=== PATIENT | female | born 2000 | race Caucasian/White ===

== ENCOUNTER → 2021-06-17 13:57 | Outpatient (BNVA) | payer MEDICAID, SELFPAY | PROVIDERS: Family Provider Nurse Practitioner Family; PCP Nurse Practitioner Family; Visit Provider Otolaryngology | DX: Z01.812 Encounter for preprocedural laboratory examination (principal); S00.451A Superficial foreign body of right ear, initial encounter; Z20.822 Contact with and (suspected) exposure to COVID-19; X58.XXXA Exposure to other specified factors, initial encounter | CPT/HCPCS: 87635 ==

== ENCOUNTER → 2021-06-21 16:22 | Outpatient (BNVA) | payer MEDICAID, SELFPAY | PROVIDERS: Family Provider Nurse Practitioner Family; PCP Nurse Practitioner Family; Visit Provider Nurse Practitioner Family | DX: H66.90 Otitis media, unspecified, unspecified ear (principal); R39.11 Hesitancy of micturition; K59.00 Constipation, unspecified | CPT/HCPCS: 74018 ==

== ENCOUNTER → 2021-06-22 11:01 | Outpatient (BNVA) | payer MEDICAID, SELFPAY | PROVIDERS: Family Provider Nurse Practitioner Family; PCP Nurse Practitioner Family; Visit Provider Nurse Practitioner Family | DX: R39.11 Hesitancy of micturition (principal); N39.0 Urinary tract infection, site not specified | CPT/HCPCS: 81000 ==

== ENCOUNTER 2021-09-11 00:50 | Emergency (ER) | payer MEDICAID, SELFPAY ==
--- NOTE | 2021-09-11 01:00 | W.ED.LOWEXIN ---
HPI - Extremity Injury (Lower) General: Chief Complaint: Pediatric General Medical Stated Complaint: hair wrap around toe, turning purple Time Seen by Provider: 09/11/21 00:59 History of Present Illness: 21-year-old female comes in today with complaints of a hair tourniquet to the third toe on the left foot. Patient is autistic and does not verbalize pain. Review of Systems General: Reports: 10 or more systems reviewed and unremarkable except in HPI and below Card: Denies: chest pain Resp: Denies: dyspnea Musc: Reports: extremity pain Skin/Breast: Reports: erythema PFSH ED PFSH: Surgical History Hx of eye surgery Social History Smoking and tobacco status: never smoked Second hand smoke exposure: No Smoking risk assessment/counseling performed?: No Alcohol intake: never Desire information about alcohol rehabilitation?: No Counseling given: No Desire information about substance/drug rehabilitation?: No Counseling given: No Adopted: No Caregiver/support person: Yes Lives independently: Yes Household members: family Housing: House Marital status: Single service: No Physical Exam Const: COMMON NORMALS: alert HENMT: COMMON NORMALS: normocephalic HEAD & SCALP: normocephalic Neck/C-Spine: COMMON NORMALS: full ROM Resp: COMMON NORMALS: normal respiratory effort Cardio: COMMON NORMALS: regular rate RATE: regular rate Extremity: COMMON NORMALS: full ROM LEFT LOWER EXTREMITY: Yes foot & digits (Tourniquet wound to the middle toe of the left foot. Redness and skin slou) Left foot and digits: Yes inspection, Yes palpation and Yes ROM Neuro: SENSORIUM/ORIENTATION: Yes alert MDM - Extremity Injury (Lower) Medical Decision Making Patient comes in today for concerns of a hair tourniquet to the middle toe of the left foot. On exam patient has a wound secondary to a tourniquet release from a hair tourniquet. Redness and sloughing of the toe was noted. Differential diagnosis includes cellulitis, infected wound, hair tourniquet. Will cover with Augmentin for wound infection. Recommend monitoring for worsening symptoms or new concerns. Recommend follow-up with primary care in 3 days for recheck. Mother reports understanding agreed to plan. Discharge Plan Discharge Patient Disposition: Home Clinical Impression: Wound infection Hair tourniquet of toe of left foot with infection Qualifiers: Encounter type: initial encounter Qualified Code(s): S90.445A - External constriction, left lesser toe(s), initial encounter Condition: Stable Prescriptions: New amoxicillin-pot clavulanate 250-62.5 mg/5 mL suspension for reconstitution 10 ml PO Q8H 7 Days Qty: 210 0RF No Action iqhszlnv-ejpyspbgu-EE 3.5-10,000-1 mg/mL-unit/mL-% drops,suspension 4 drp otic (ear) TID Qty: 10 2RF Rx Instructions: Apply 4 drops into left ear canal 4 times a day. cephalexin 500 mg capsule 500 mg PO TID Qty: 30 0RF risperidone 1 mg/mL solution 1 mg PO BID 0RF Rx Instructions: Take 1.75 Ml by mouth in the morning and 2.25 Ml in the evening. levetiracetam 100 mg/mL solution 500 mg PO BID 0RF Rx Instructions: Take 5 ML by mouth twice daily Discharge Orders: Discharge ED (Routine); Ordered 09/11/21 Ordered By: Missael Hodge Referrals: Archana Wolfe FNP-C [Primary Care Provider] - Discharge Diet: Usual diet Discharge Activity: Increase activity as tolerated Patient Instructions: Wound Care (General) Activity Restrictions/Additional Instructions: Keep wound clean and dry. Wash wound twice daily with some mild soap and water. Dry thoroughly and cover with a sock. Give antibiotics 10 mL 3 times a day for the next 7 days. Follow-up with primary care in 3 to 5 days for recheck. Return to ED for new concerns. Coding Level of Care Code ED [facility] [employer] Supervisor for [facility]
== END 2021-09-11 01:16 | disposition home or self-care (01) ==
PROVIDERS: Emergency Provider Nurse Practitioner Family; PCP Nurse Practitioner Family
DX: S90.445A External constriction, left lesser toe(s), initial encounter (principal); X58.XXXA Exposure to other specified factors, initial encounter; F84.0 Autistic disorder
CPT/HCPCS: 99282

== ENCOUNTER 2021-09-20 16:12 | Emergency (ER) | payer MEDICAID, SELFPAY ==
[2021-09-20 17:04] VITALS: BP 117/70; PULSE 135; RESP 18; O2SAT 97; BMI 19.3
[2021-09-20 18:00] VITALS: BP 117/70; PULSE 135; RESP 18; O2SAT 97
--- NOTE | 2021-09-20 18:02 | ED_ITS ---
HPI - General Adult General: Chief complaint: General Medical Stated complaint: general pain Time Seen by Provider: 09/20/21 17:51 History of Present Illness: Patient is a 21-year-old female comes to the ED with pain in toe of left foot. Patient is autistic and nonverbal. Patient was seen here in the ED back on August 12 because she had a hair tourniquet on her left toe. Mother is concerned that patient's left foot is still bothering her and wants it to get evaluated. Patient is still having some pain on left foot third toe where previous hair tourniquet was removed. Patient has been taking an antibiotic daily. She was given a dose of ibuprofen before coming to the ED. Associated symptoms: Deny chest pain, dyspnea, headache(s), nausea, rash, palpitations or vomiting Review of Systems Const: Denies: fever(s), chills or fatigue Eyes: Denies: change in vision or eye discomfort ENMT: Denies: throat pain, odynophagia, nasal discharge or nasal congestion Card: Denies: chest pain, palpitations, edema, swelling of feet/ankles, dyspnea on exertion or orthopnea Resp: Denies: dyspnea, productive cough or non-productive cough GI: Denies: abdominal pain, nausea, vomiting, diarrhea, constipation or hematochezia : Denies: flank pain, dysuria or hematuria Musc: Reports: extremity pain (left foot-); Denies: neck pain, back pain or extremity swelling Skin/Breast: Reports: new lesions (Healing wound from hair tourniquet on the left third toe.); Denies: rash Neuro: Denies: headache(s), numbness in extremities or weakness in extremities [facility] ED PFSH: Medical History (Updated 09/21/21 @ 01:16 by KESHIA Segal) Autism Surgical History Hx of eye surgery Social History Smoking and tobacco status: never smoked Second hand smoke exposure: No Smoking risk assessment/counseling performed?: No Alcohol intake: never Desire information about alcohol rehabilitation?: No Counseling given: No Desire information about substance/drug rehabilitation?: No Counseling given: No Adopted: No Caregiver/support person: Yes Lives independently: Yes Household members: family Housing: House Marital status: Single service: No Physical Exam Const: COMMON NORMALS: alert EXAM LIMITATIONS: other limitations (Nonverbal and autistic) HENMT: COMMON NORMALS: normocephalic HEAD & SCALP: normocephalic MOUTH: Normal oral and palatal mucosa present THROAT: posterior oropharynx normal and uvula midline Neck/C-Spine: COMMON NORMALS: supple GENERAL: Yes normal visual inspection Resp: COMMON NORMALS: normal respiratory effort, No retractions, No use of accessory muscles and clear to auscultation bilaterally AUSCULTATION: clear to auscultation bilaterally Cardio: COMMON NORMALS: regular rate, regular rhythm, S1 normal heart sound present, S2 normal heart sound present, No gallops present (Cardio), No clicks present (Cardio), No murmurs present (Cardio) and Peripheral pulses 2+ throughout RATE: regular rate RHYTHM: regular rhythm HEART SOUNDS: S1 normal heart sound present and S2 normal heart sound present PERIPHERAL PULSES: Peripheral pulses 2+ throughout GI: COMMON NORMALS: Normal to inspection, nondistended, normoactive bowel sounds present, Soft to palpation, non-tender and no masses PALPATION: Yes Soft to palpation : COMMON NORMALS: Yes no CVA tenderness BLADDER/KIDNEY EXAM: Yes no CVA tenderness Back/Pelvis: COMMON NORMALS: no CVA tenderness Extremity: NARRATIVE EXTREMITY EXAM: Left foot --third toe?the wound left from hair tourniquet is still healing. No new hair tourniquets seen on the other toes. No erythema, warmth or purulent drainage from wound. Third toe wound was tender to touch and appears to be healing well. Neuro: COMMON NORMALS: moves all extremities SENSORIUM/ORIENTATION: Yes alert Skin: GENERAL SKIN EXAM: dry skin Course Vital Signs: Vital signs: Vital Signs Pulse Rate 135 H 09/20/21 18:00 Respiratory Rate 18 09/20/21 18:00 Blood Pressure 117/70 09/20/21 18:00 Pulse Oximetry 97 09/20/21 18:00 [facility] - General Adult Medical Decision Making Patient is a 21-year-old female comes to the ED with pain in toe of left foot. Patient is autistic and nonverbal. Patient was seen here in the ED back on August 12 because she had a hair tourniquet on her left toe. Mother is concerned that patient's left foot is still bothering her and wants it to get evaluated. Patient is still having some pain on left foot third toe where previous hair tourniquet was removed. Patient has been taking an antibiotic daily. Exam of the left foot showed a healing wound from hair tourniquet on third toe. No signs of infection noted. Toe did appear to still be tender to the touch but no visible hair tourniquet seen on third toe and other toes of left foot. Patient was stable for discharge home and I told mother to put triple antibiotic ointment on toe daily to help with healing. Have her follow-up with PCP within the next week for reevaluation. Return to ED precautions given. Patient's mother understood and agreed with plan. Discharge Plan Discharge Patient Disposition: Home Clinical Impression: Hair tourniquet of toe of left foot Qualifiers: Encounter type: subsequent encounter Qualified Code(s): S90.445D - External constriction, left lesser toe(s), subsequent encounter Condition: Stable Prescriptions: No Action cephalexin 500 mg capsule 500 mg PO TID Qty: 30 0RF risperidone 1 mg/mL solution 1 mg PO BID 0RF Rx Instructions: Take 1.75 Ml by mouth in the morning and 2.25 Ml in the evening. levetiracetam 100 mg/mL solution 500 mg PO BID 0RF Rx Instructions: Take 5 ML by mouth twice daily rtjanuux-pniouixcs-GW 3.5-10,000-1 mg/mL-unit/mL-% drops,suspension 4 drp otic (ear) TID Qty: 10 2RF Discharge Orders: Discharge ED (Routine); Ordered 09/20/21 Ordered By: Leonard Calixto Referrals: Archana Wolfe FNP-C [Primary Care Provider] - Discharge Diet: Regular Discharge Activity: Increase activity as tolerated Activity Restrictions/Additional Instructions: Follow-up with medical provider as directed in the next 5 to 7 days reevaluation. Continue taking all medications as previously prescribed. Apply triple antibiotic ointment on toe wound daily and clean daily with warm soapy water. Return to the ER or your medical provider if condition worsens. Please read and understand discharge instructions. Thank you for choosing [facility] for your healthcare needs today. Please realize this is an emergency room and that we are providing you with a medical screening exam and this may not be complete and all inclusive of all the testing and or work up that you may need to determine your ailment or severity of your illness. It is very important that you follow up as instructed or that you return to the Emergency Department should you have concerns or if your condition changes or worsens in any way. Coding Level of Care Code ED Home Aid for [facility] Exam Comprehensive
== END 2021-09-20 18:09 | disposition home or self-care (01) ==
PROVIDERS: Emergency Provider Physician Assistant; PCP Nurse Practitioner Family
DX: S90.44 External constriction of toe (principal); W49.0 Item causing external constriction; F84.0 Autistic disorder
CPT/HCPCS: 99281

== ENCOUNTER → 2021-09-23 15:52 | Outpatient (BNVA) | payer MEDICAID, SELFPAY | PROVIDERS: PCP Nurse Practitioner Family; Visit Provider Nurse Practitioner Family | DX: B99.9 Unspecified infectious disease (principal); R52 Pain, unspecified | CPT/HCPCS: 80053; 81000; 85025 ==

== ENCOUNTER 2021-10-15 20:37 | Emergency (ER) | payer MEDICAID, SELFPAY ==
[2021-10-15 20:53] VITALS: BP 116/75; PULSE 65; RESP 16; TEMP 36.8; O2SAT 99; BMI 19.3
--- NOTE | 2021-10-15 22:11 | XRR_ITS ---
PROCEDURE INFORMATION: Exam: XR Abdomen Exam date and time: 10/15/2021 10:19 PM Age: 21 years old Clinical indication: Abdominal pain; Generalized; Additional info: Constipation TECHNIQUE: Imaging protocol: XR of the abdomen. Views: Frontal supine view of the abdomen. 1 View. COMPARISON: CR XR abdomen 1V* [id number] 06/21/2021 4:21 PM FINDINGS: Gastrointestinal tract: Normal. No bowel dilation. Bones/joints: Unremarkable. XR/XR KUB [id number] IMPRESSION: No acute findings.
[2021-10-15 22:15] VITALS: BP 118/87; PULSE 61; RESP 16; O2SAT 95
--- NOTE | 2021-10-15 22:15 | ED_ITS ---
HPI - Seizure General: Chief Complaint: Seizure Stated Complaint: possible seizure. Time Seen by Provider: 10/15/21 22:06 Source: patient Mode of arrival: ambulatory Limitations: no limitations History of Present Illness: HPI Narrative: 21-year-old female has a history of autism also has a history of seizures. Caregiver states that she had had a seizure today at 6 PM and lasted roughly 25 seconds. Is a tonic-clonic seizure patient is back to her baseline. States that at times when she gets ear infections or constipation she has seizures she is on Keppra last seizure was in 2019 she denies any head patient's had no headaches has been acting normal and at her baseline has no complaints currently. Associated symptoms: Deny chest pain, chills or fever(s) Review of Systems Const: Denies: fever(s), chills, body aches or change in appetite Eyes: Denies: blurry vision or eye discomfort ENMT: Denies: throat pain or dental pain Card: Denies: chest pain Resp: Denies: dyspnea GI: Denies: abdominal pain, nausea, vomiting or diarrhea : Denies: dysuria Musc: Denies: neck pain or back pain Skin/Breast: Denies: rash Neuro: Reports: seizure-like activity Psych: Denies: depression Loi/Lymph: Denies: easy bruising All/Imm: Denies: urticaria PFSH ED PFSH: Medical History Autism Surgical History Hx of eye surgery Social History Smoking and tobacco status: never smoked Second hand smoke exposure: No Smoking risk assessment/counseling performed?: No Alcohol intake: never Desire information about alcohol rehabilitation?: No Counseling given: No Desire information about substance/drug rehabilitation?: No Counseling given: No Adopted: No Caregiver/support person: Yes Lives independently: Yes Household members: family Housing: House Marital status: Single service: No Physical Exam Const: COMMON NORMALS: no acute distress and healthy appearing HENMT: COMMON NORMALS: normocephalic, atraumatic and TM's normal bilaterally HEAD & SCALP: normocephalic and atraumatic TYMPANIC MEMBRANE: TM's normal bilaterally MOUTH: Normal oral and palatal mucosa present Eye: COMMON NORMALS: Equal, round and reactive pupils present and EOMs intact bilaterally PUPIL: Yes Equal, round and reactive pupils present Neck/C-Spine: COMMON NORMALS: full ROM and supple Chest: COMMONS NORMALS: normal inspection of the chest and normal palpation of entire chest wall Resp: COMMON NORMALS: normal respiratory effort, No retractions, No use of accessory muscles and clear to auscultation bilaterally AUSCULTATION: clear to auscultation bilaterally Cardio: COMMON NORMALS: regular rate, regular rhythm and No murmurs present (Cardio) RATE: regular rate RHYTHM: regular rhythm GI: COMMON NORMALS: Normal to inspection, nondistended, normoactive bowel sounds present, Soft to palpation, non-tender and no masses PALPATION: Yes Soft to palpation Extremity: COMMON NORMALS: normal to inspection and full ROM Neuro: COMMON NORMALS: moves all extremities and no focal motor deficits Psych: COMMON NORMALS: mental status grossly normal, Normal thought process present and cooperative THOUGHT PROCESS: Normal thought process present Skin: COMMON NORMALS: no rashes or lesions noted and no wounds GENERAL SKIN EXAM: no rashes or lesions noted Course Vital Signs: Vital signs: Vital Signs Temperature 98.2 F 10/15/21 20:53 Pulse Rate 61 10/15/21 22:15 Respiratory Rate 16 10/15/21 22:15 Blood Pressure 118/87 10/15/21 22:15 Pulse Oximetry 95 10/15/21 22:15 MDM - Seizure MDM Narrative Medical decision making narrative: Patient presents here with a seizure she is well-appearing here and is at her baseline. Her exam here is benign vitals are normal. X-ray shows some mild constipation she has no signs of infection she is to follow-up with her neurologist return if worsening she understands agrees to plan. Lab Data Labs: Radiology Impressions KUB X-Ray 10/15/21 22:11 IMPRESSION: No acute findings. Discharge Plan Discharge Patient Disposition: Home Clinical Impression: Generalized seizure Condition: Stable Prescriptions: No Action cephalexin 500 mg capsule 500 mg PO TID Qty: 30 0RF risperidone 1 mg/mL solution 1 mg PO BID 0RF Rx Instructions: Take 1.75 Ml by mouth in the morning and 2.25 Ml in the evening. levetiracetam 100 mg/mL solution 500 mg PO BID 0RF Rx Instructions: Take 5 ML by mouth twice daily yymasczi-dspxatewc-NG 3.5-10,000-1 mg/mL-unit/mL-% drops,suspension 4 drp otic (ear) TID Qty: 10 2RF amoxicillin-pot clavulanate 875-125 mg tablet 1 tab PO BID Qty: 20 0RF Debrox 6.5 % drops 5 drp otic (ear) DAILY 4 Days Qty: 15 0RF Discharge Orders: Discharge ED (Routine); Ordered 10/15/21 Ordered By: All Lozada Referrals: Archana Wolfe FNP-C [Primary Care Provider] - 1-3 days Discharge Diet: Advance as tolerated Discharge Activity: Resume usual activity Patient Instructions: Recurrent Seizures in Adults (ED) Coding Level of Care Code ED [employer] Consultant for Tomas Fwdivina Exam Comprehensive
[2021-10-15] MEDS: LORazepam 1 mg Tablet PO (22:23)
== END 2021-10-15 22:50 | disposition home or self-care (01) ==
PROVIDERS: Emergency Provider Emergency Medicine; PCP Nurse Practitioner Family
DX: R56.9 Unspecified convulsions (principal)
CPT/HCPCS: 74018; 99283

== ENCOUNTER 2022-02-27 07:13 | Emergency (ER) | payer MEDICAID, SELFPAY ==
[2022-02-27] VITALS (43 sets, daily range): BP systolic 87–109; BP diastolic 38–72; PULSE 76–94; RESP 14; TEMP 36.4–36.8; O2SAT 94–100
--- NOTE | 2022-02-27 07:33 | ED_ITS ---
HPI - Extremity Problem General: Chief complaint: Extremity Problem,Nontraumatic Stated complaint: EDIN LOWER EXT SWELLING Time Seen by Provider: 02/27/22 07:16 History of Present Illness: This patient is a 22 year old presenting to the ED with mother due to bilateral leg swelling. Mom noticed it on waking this morning and is sure it was not there last night. There is also some rash and mom says that the patient's feet were purple this morning. The patient is non-verbal with autism and hearing loss. Mother is her caregiver. No recent fever, illness, vomiting diarrhea, easy bruising or bleeding. She has chronic otitis externa and is on ear drops currently. She takes keppra for seizures. Associated symptoms: Reports rash; Deny fever(s) Review of Systems Const: Denies: fever(s), chills, fatigue or malaise Eyes: Denies: change in vision ENMT: Reports: ear discharge Card: Reports: edema Resp: Denies: dyspnea, productive cough or non-productive cough GI: Denies: abdominal pain, nausea or vomiting : Denies: flank pain or difficulty voiding Musc: Denies: neck pain or back pain Skin/Breast: Reports: rash and erythema Neuro: Denies: headache(s), numbness in extremities or weakness in extremities Loi/Lymph: Denies: easy bruising or easy bleeding PFSH ED PFSH: Medical History Autism Surgical History Hx of eye surgery Social History Smoking and tobacco status: never smoked Second hand smoke exposure: No Smoking risk assessment/counseling performed?: No Alcohol intake: never Desire information about alcohol rehabilitation?: No Counseling given: No Desire information about substance/drug rehabilitation?: No Counseling given: No Adopted: No Caregiver/support person: Yes Lives independently: Yes Household members: family Housing: House Marital status: Single service: No Physical Exam Const: COMMON NORMALS: no acute distress and alert GENERAL APPEARANCE: cooperative and comfortable HENMT: COMMON NORMALS: external ears normal, EAC's normal and TM's normal bilaterally HEAD & SCALP: normal to inspection FACE & SINUS: normal facial exam EXTERNAL EAR: Yes external ears normal EXTERNAL AUDITORY CANAL: EAC's normal TYMPANIC MEMBRANE: TM's normal bilaterally Eye: GENERAL EYE: appearance normal, both eyes and all related structures Neck/C-Spine: COMMON NORMALS: supple, no meningeal signs and no JVD Chest: COMMONS NORMALS: normal inspection of the chest Resp: COMMON NORMALS: normal respiratory effort, No use of accessory muscles and clear to auscultation bilaterally AUSCULTATION: clear to auscultation bilaterally Cardio: COMMON NORMALS: no JVD, regular rate, regular rhythm and No murmurs present (Cardio) RATE: regular rate RHYTHM: regular rhythm GI: COMMON NORMALS: Normal to inspection, nondistended, normoactive bowel sounds present, Soft to palpation and non-tender INSPECTION: Yes normal to inspection AUSCULTATION: Yes normoactive bowel sounds PALPATION: Yes Soft to palpation Back/Pelvis: COMMON NORMALS: thoracic and lumbar spine normal to inspection Extremity: GENERAL: Yes edema (bilateral lower extremities,petechiae) Neuro: COMMON NORMALS: moves all extremities, no focal motor deficits and no sensory deficits noted SENSORIUM/ORIENTATION: Yes alert MENINGEAL SIGNS: Yes no meningeal signs Psych: COMMON NORMALS: mental status grossly normal, cooperative and normal affect Skin: COMMON NORMALS: turgor normal GENERAL SKIN EXAM: turgor normal and petechiae Course Vital Signs: Vital signs: Vital Signs Temperature 97.5 F L 02/27/22 10:45 Pulse Rate 76 02/27/22 11:37 Respiratory Rate 14 02/27/22 11:37 Blood Pressure 97/46 02/27/22 12:45 Pulse Oximetry 97 02/27/22 12:40 Oxygen Delivery Me thod 02/27/22 07:15 MDM - Extremity (Nontraumatic) Medical Decision Making Patient with petechiae and edema in the lower extremities. She is on Keppra which can cause thrombocytopenia. Consideration of other etiologies of thr ombocytopenia as well - infection, idiopathic, neoplastic, hepatic. Patient's CBC came back with normal platelet count. Other etiologies for petechiae considered. Multiple rechecks of temperature revealed no fever making an infectious cause unlikely. Urinalysis was normal. No clinical signs of mono or strep. The patient otherwise looks well. She ambulated in the ER. She was sleepy in the ER but mom said she was up very early this morning and thinks that is why she is sleepy now. Mom is comfortable taking her home. I think she is reliable for follow-up. We discussed return precautions. Lab Data : 02/27/22 07:35 02/27/22 07:35 Laboratory Results WBC 6.0 10^3/uL (4.0-10.0) 02/27/22 07:35 RBC 4.29 10^6/uL (4.1-5.3) 02/27/22 07:35 Hgb 12.6 g/dL (11.5-15.3) 02/27/22 07:35 Hct 37.9 % (37.0-47.0) 02/27/22 07:35 MCV 88.3 fl (81-99) 02/27/22 07:35 MCH 29.4 pg (28.0-34.0) 02/27/22 07:35 MCHC 33.2 g/dL (30.0-36.0) 02/27/22 07:35 RDW 12.7 % (12.1-15.1) 02/27/22 07:35 Plt Count 258 10^3/cmm (130-400) 02/27/22 07:35 MPV 11.0 fL (7.4-10.4) H 02/27/22 07:35 Neut % (Auto) 44.9 % 02/27/22 07:35 Lymph % (Auto) 41.3 % 02/27/22 07:35 [place] % (Auto) 11.5 % 02/27/22 07:35 Eos % (Auto) 1.3 % 02/27/22 07:35 Baso % (Auto) 0.8 % 02/27/22 07:35 Neut # (Auto) 2.70 10^3/uL (1.8-7.7) 02/27/22 07:35 Lymph # (Auto) 2.5 10^3/uL (0.8-4.8) 02/27/22 07:35 [place] # (Auto) 0.7 10^3/uL (0.2-0.9) 02/27/22 07:35 Eos # (Auto) 0.1 10^3/uL (0.0-0.8) 02/27/22 07:35 Baso # (Auto) 0.1 10^3/uL (0.0-0.1) 02/27/22 07:35 Nucleated RBC % (auto) 0 % 02/27/22 07:35 Nucleated RBCs # 0.0 /100WBC 02/27/22 07:35 PT 13.90 SECONDS (12.1-14.9) 02/27/22 07:35 INR 1.04 (0.8-1.2) 02/27/22 07:35 Sodium 139 mmol/L (136-145) 02/27/22 07:35 Potassium 4.5 mmol/L (3.5-5.1) 02/27/22 07:35 Chloride 106 mmol/L (98-107) 02/27/22 07:35 Carbon Dioxide 22 mmol/L (22-29) 02/27/22 07:35 Anion Gap 15.5 (5-19) 02/27/22 07:35 BUN 13 mg/dL (6-20) 02/27/22 07:35 Creatinine 0.4 mg/dL (0.5-0.9) L 02/27/22 07:35 GFR Calculation 197.8 mL/min (90-130) H 02/27/22 07:35 Glucose 68 mg/dL (65-115) 02/27/22 07:35 Calculated Osmolality 286 mOsm/kg (285-295) 02/27/22 07:35 Calcium 9.3 mg/dL (8.5-10.5) 02/27/22 07:35 Total Bilirubin 0.2 mg/dL (0.15-1.2) 02/27/22 07:35 AST 18 U/L (0-32) 02/27/22 07:35 ALT 17 U/L (0-33) 02/27/22 07:35 Alkaline Phosphatase 75 U/L (35-105) 02/27/22 07:35 Creatine Kinase 92 U/L (26-192) 02/27/22 07:35 C-Reactive Protein 3.0 mg/L (0.0-4.9) 02/27/22 07:35 Total Protein 6.7 g/dL (6.6-8.7) 02/27/22 07:35 Albumin 4.2 g/dL (3.5-5.2) 02/27/22 07:35 Globulin 2.5 g/dL (1.3-4.6) 02/27/22 07:35 HCG, Qual Negative (Negative) 02/27/22 07:35 Urine Color Colorless (Yellow) 02/27/22 09:16 Urine Appearance Clear (CLEAR) 02/27/22 09:16 Urine pH 6 (5-7) 02/27/22 09:16 Ur Specific [place] 1.010 (1.005-1.030) 02/27/22 09:16 Urine Protein Neg (Negative) 02/27/22 09:16 Urine Glucose (UA) Norm (Normal) 02/27/22 09:16 Urine Ketones Negative (Negative) 02/27/22 09:16 Urine Blood Neg (Negative) 02/27/22 09:16 Urine Nitrate Negative (Negative) 02/27/22 09:16 Urine Bilirubin Neg (Negative) 02/27/22 09:16 Urine Urobilinogen Norm mg/dL (Negative) 02/27/22 09:16 Ur Leukocyte Esterase Negative (Negative) 02/27/22 09:16 Discharge Plan Discharge Patient Disposition: Home Clinical Impression: Lower extremity edema, Petechiae Condition: Stable Prescriptions: No Action risperidone 1 mg/mL solution 1 mg PO BID Rx Instructions: Take 1.75 Ml by mouth in the morning and 2.25 Ml in the evening. levetiracetam 100 mg/mL solution 500 mg PO BID Rx Instructions: Take 5 ML by mouth twice daily [id number] 3.5-10,000-1 mg/mL-unit/mL-% drops,suspension 4 drp otic (ear) TID Qty: 10 2RF Debrox 6.5 % drops 5 drp otic (ear) DAILY 4 Days Qty: 15 0RF triamcinolone acetonide 0.1 % cream 1 applic topical BID Qty: 30 0RF Rx Instructions: large area arms and face Discharge Orders: Discharge ED (Routine); Ordered 02/27/22 Ordered By: Dorota Hayden Referrals: Archana Wolfe FNP-C [Primary Care Provider] - Discharge Diet: Advance as tolerated Discharge Activity: Increase activity as tolerated Patient Instructions: Opioid Safety, Pain Management Activity Restrictions/Additional Instructions: Monitor the swelling and rash. Return to the ER if increased swelling or rash. Return for fever, changes in behavior, vomiting or other concerning symptoms. Follow-up with your primary care provider if not improving within a few days. Continue regular medications. Coding Level of Care Code ED Photo Mask Inspector for Chg Fwd Exam Comprehensive
--- NOTE | 2022-02-27 07:42 | PC.NURSE ---
mother brought pt to ED for c/o bilat leg swelling. mild swelling noted to right ankle and knee. no discoloration. pt moves all extremities. lung sounds clear throughout. pt is nonverbal at baseline.
--- NOTE | 2022-02-27 07:45 | PC.NURSE ---
informed pts mother that urine sample is ordered. per mother, pt is continent and will inform nurse when pt is ready to use the restroom.
[2022-02-27 07:51] LABS: Basophils # 0.1 10^3/uL (0.0-0.1); Basophils % 0.8 %; Eosinophils # 0.1 10^3/uL (0.0-0.8); Eosinophils % 1.3 %; Hematocrit 37.9 % (37.0-47.0); Hemoglobin 12.6 g/dL (11.5-15.3); Lymphocytes # 2.5 10^3/uL (0.8-4.8); Lymphocytes % 41.3 %; Mean Corpuscular HGB Conc 33.2 g/dL (30.0-36.0); Mean Corpuscular Hemoglobin 29.4 pg (28.0-34.0); Mean Corpuscular Volume 88.3 fl (81-99); Monocytes # 0.7 10^3/uL (0.2-0.9); Monocytes % 11.5 %; Neutrophils % 44.9 %; Nucleated Red Blood Cells % 0 %; Platelet Count 258 10^3/cmm (130-400); Red Blood Count 4.29 10^6/uL (4.1-5.3); Red Cell Distribution Width 12.7 % (12.1-15.1)
[2022-02-27 08:02] LABS: INR 1.04 (0.8-1.2)
[2022-02-27 08:03] LABS: HCG, Serum Qual Negative (Negative)
[2022-02-27 08:11] LABS: Alanine Aminotransferase 17 U/L (0-33); Albumin Level 4.2 g/dL (3.5-5.2); Alkaline Phosphatase 75 U/L (35-105); Aspartate Amino Transferase 18 U/L (0-32); Blood Urea Nitrogen 13 mg/dL (6-20); Calcium 9.3 mg/dL (8.5-10.5); Carbon Dioxide 22 mmol/L (22-29); Chloride 106 mmol/L (98-107); Creatine Phosphokinase 92 U/L (26-192); Globulin 2.5 g/dL (1.3-4.6); Glomerular Filtration Rate 197.8 mL/min (90-130); Glucose 68 mg/dL (65-115); Osmolality Calculated 286 mOsm/kg (285-295); Sodium 139 mmol/L (136-145); Total Bilirubin 0.2 mg/dL (0.15-1.2); Total Protein 6.7 g/dL (6.6-8.7)
[2022-02-27 08:15] LABS: Anion Gap 15.5 (5-19); Potassium 4.5 mmol/L (3.5-5.1)
[2022-02-27] MEDS: sodium chloride 0.9% 1,000 ML 999 ML IV (09:26)
[2022-02-27 09:33] LABS: Add Urine Microscopic? NO; Charge for UA Resulting for Rev
[2022-02-27 09:37] LABS: Bilirubin Urine Neg (Negative); Blood Urine Neg (Negative); Glucose Urine UA Norm (Normal); Ketones Urine Negative (Negative); Leukocyte Esterase Urine Negative (Negative); Nitrate Urine Negative (Negative); Protein Urine Neg (Negative); Urine Appearance Clear (CLEAR); Urine Color Colorless (Yellow); Urobilinogen Urine Norm (Negative); pH Urine 6 (5-7)
== END 2022-02-27 12:52 | disposition home or self-care (01) ==
PROVIDERS: Emergency Provider Emergency Medicine; PCP Nurse Practitioner Family
DX: R60.0 Localized edema (principal); R23.3 Spontaneous ecchymoses
CPT/HCPCS: 80053; 81003; 82550; 84703; 85025; 85610; 86140; 96360; 99284; J7030

== ENCOUNTER 2022-04-06 11:07 | Emergency (ER) | payer MEDICAID, SELFPAY ==
[2022-04-06 11:36] VITALS: BP 128/69; PULSE 109; RESP 14; TEMP 36.4; O2SAT 95; BMI 18.7
--- NOTE | 2022-04-06 11:57 | XRR_ITS ---
PROCEDURE INFORMATION: Exam: XR Left Foot Exam date and time: 04/06/2022 12:18 PM Age: 22 years old Clinical indication: Pain; Swelling, leg or foot; Bilateral; Additional info: Pain and swelling TECHNIQUE: Imaging protocol: Radiologic exam of the Left foot. Views: 3 or more views. COMPARISON: No relevant prior studies available. FINDINGS: Bones/joints: No fracture, dislocation or other acute bone or joint abnormality. There is hallux valgus and bunion. No significant degenerative disease. Soft tissues: Normal. XR/XR foot LT min 3V* [id number] IMPRESSION: 1. Hallux valgus and bunion. 2. No acute abnormality.
--- NOTE | 2022-04-06 11:57 | XRR_ITS ---
PROCEDURE INFORMATION: Exam: XR Right Foot Exam date and time: 04/06/2022 12:16 PM Age: 22 years old Clinical indication: Pain; Swelling, leg or foot; Bilateral; Patient HX: Lac to RT foot swelling; Additional info: Pain and swelling, possible injury TECHNIQUE: Imaging protocol: Radiologic exam of the Right foot. Views: 3 or more views. COMPARISON: No relevant prior studies available. FINDINGS: Bones/joints: No fracture, dislocation or other significant bone or joint abnormality. Soft tissues: There is a 3 mm foreign body in the soft tissues anterior to the proximal phalanx of the 3rd toe. XR/XR foot RT min 3V* [id number] IMPRESSION: 1. Is a 3 mm foreign body in the soft tissues anterior to the proximal phalanx of the 3rd toe. 2. No bony abnormality.
--- NOTE | 2022-04-06 12:06 | W.ED.EXTPRO ---
HPI - Extremity Problem General: Chief complaint: Extremity Problem,Nontraumatic Stated complaint: fever, right foot lac Time Seen by Provider: 04/06/22 11:42 History of Present Illness: Patient is a 22-year-old female comes to the ED with multiple complaints. Patient is autistic and nonverbal. Patient possibly injured foot a couple days ago. Mother noticed a small cut on bottom of patient's right foot along with some ecchymosis and swelling. Mother also noticed some ecchymosis and swelling around patient's left midfoot region as well. She states that patient has been limping for the past couple days as well. Patient also started having fever and chills today. Mother was recently diagnosed with COVID-19. Associated symptoms: Reports fever(s); Deny chest pain or rash Review of Systems Const: Reports: fever(s) and chills; Denies: fatigue Eyes: Denies: change in vision or eye discomfort ENMT: Denies: throat pain, odynophagia, nasal discharge or nasal congestion Card: Denies: chest pain, palpitations, edema, swelling of feet/ankles, dyspnea on exertion or orthopnea Resp: Denies: dyspnea, productive cough or non-productive cough GI: Denies: abdominal pain, nausea, vomiting, diarrhea, constipation or hematochezia : Denies: flank pain, dysuria or hematuria Musc: Reports: extremity pain (Left foot and right foot.) and extremity swelling (Left and right foot); Denies: neck pain or back pain Skin/Breast: Denies: rash or new lesions Neuro: Denies: headache(s), numbness in extremities or weakness in extremities [facility] ED PFSH: Medical History Autism Surgical History Hx of eye surgery Social History Smoking and tobacco status: never smoked Second hand smoke exposure: No Smoking risk assessment/counseling performed?: No Alcohol intake: never Desire information about alcohol rehabilitation?: No Counseling given: No Desire information about substance/drug rehabilitation?: No Counseling given: No Adopted: No Caregiver/support person: Yes Lives independently: Yes Household members: family Housing: House Marital status: Single service: No Physical Exam Const: COMMON NORMALS: no acute distress and alert EXAM LIMITATIONS: other limitations (Autistic and nonverbal) HENMT: COMMON NORMALS: normocephalic HEAD & SCALP: normocephalic MOUTH: Normal oral and palatal mucosa present THROAT: posterior oropharynx normal and uvula midline Neck/C-Spine: COMMON NORMALS: supple GENERAL: Yes normal visual inspection Resp: COMMON NORMALS: normal respiratory effort, No retractions, No use of accessory muscles and clear to auscultation bilaterally AUSCULTATION: clear to auscultation bilaterally Cardio: COMMON NORMALS: regular rate, regular rhythm, S1 normal heart sound present, S2 normal heart sound present, No gallops present (Cardio), No clicks present (Cardio), No murmurs present (Cardio) and Peripheral pulses 2+ throughout RATE: regular rate RHYTHM: regular rhythm HEART SOUNDS: S1 normal heart sound present and S2 normal heart sound present PERIPHERAL PULSES: Peripheral pulses 2+ throughout GI: COMMON NORMALS: Normal to inspection, nondistended, normoactive bowel sounds present, Soft to palpation, non-tender and no masses PALPATION: Yes Soft to palpation : COMMON NORMALS: Yes no CVA tenderness BLADDER/KIDNEY EXAM: Yes no CVA tenderness Back/Pelvis: COMMON NORMALS: no CVA tenderness Extremity: NARRATIVE EXTREMITY EXAM: Right foot?generalized swelling noted. No erythema or warmth noted. Patient does have a superficial cut to bottom of foot. Neurovascular intact Left foot?small amount of swelling and ecchymosis located in the midfoot region. Neurovascular intact Neuro: SENSORIUM/ORIENTATION: Yes alert GAIT: Yes Normal gait present Skin: GENERAL SKIN EXAM: dry skin Course ED course: Nurse irrigated cut on bottom of right foot extensively with normal saline. He removed a small rock from cut, which is likely the foreign body seen on x-ray. Vital Signs: Vital signs: Vital Signs Temperature 97.6 F 04/06/22 11:36 Pulse Rate 109 H 04/06/22 11:36 Respiratory Rate 14 04/06/22 11:36 Blood Pressure 128/69 04/06/22 11:36 Pulse Oximetry 95 04/06/22 11:36 Oxygen Delivery Me thod 04/06/22 11:36 MDM - Extremity (Nontraumatic) Medical Decision Making Patient is a 22-year-old female comes to the ED with multiple complaints. Patient is autistic and nonverbal. Patient possibly injured foot a couple days ago. Mother noticed a small cut on bottom of patient's right foot along with some ecchymosis and swelling. Mother also noticed some ecchymosis and swelling around patient's left midfoot region as well. She states that patient has been limping for the past couple days as well. Patient also started having fever and chills today. Mother was recently diagnosed with COVID-19. Vitals are stable. Right foot?generalized swelling noted. No erythema or warmth noted. Patient does have a superficial cut to bottom of foot. Neurovascular intact. Left foot?small amount of swelling and ecchymosis located in the midfoot region. Neurovascular intact. Left foot x-ray showed no acute findings. Right foot x-ray shows superficial foreign body in foot. COVID test was negative. The nurse cleaned and irrigated laceration on bottom of right foot and removed a small pebble which was the foreign body seen on x-ray. Patient was diagnosed with a cut of foot and viral syndrome and was discharged home with a prescription for cephalexin for prophylactic treatment of cut. Return to ED precautions given. Follow-up with PCP in the next week for reevaluation. Patient's mother understood and agreed with plan. Lab Data I reviewed the patient's lab results. Radiology Impressions Foot X-Ray 04/06/22 11:57 IMPRESSION: 1. Hallux valgus and bunion. 2. No acute abnormality. Laboratory Results SARS-CoV-2 Ag (Rapid) negative (Negative) 04/06/22 12:35 Discharge Plan Discharge Patient Disposition: Home Clinical Impression: Cut of foot, Viral syndrome Condition: Stable Prescriptions: New cephalexin 500 mg capsule 500 mg PO Q6H 7 Days Qty: 28 0RF No Action risperidone 1 mg/mL solution 1 mg PO BID Rx Instructions: Take 1.75 Ml by mouth in the morning and 2.25 Ml in the evening. levetiracetam 100 mg/mL solution 500 mg PO BID Rx Instructions: Take 5 ML by mouth twice daily [id number] 3.5-10,000-1 mg/mL-unit/mL-% drops,suspension 4 drp otic (ear) TID Qty: 10 2RF Debrox 6.5 % drops 5 drp otic (ear) DAILY 4 Days Qty: 15 0RF triamcinolone acetonide 0.1 % cream 1 applic topical BID Qty: 30 0RF Rx Instructions: large area arms and face Discharge Orders: Discharge ED (Routine); Ordered 04/06/22 Ordered By: Leonard Calixto Referrals: Archana Wolfe FNP-C [Primary Care Provider] - Discharge Diet: Regular Discharge Activity: Increase activity as tolerated Activity Restrictions/Additional Instructions: Follow-up with medical provider as directed in the next 5 to 7 days for reevaluation. Clean cut daily with soap and water and apply triple antibiotic ointment on wound and bandage it. Patient's fever is likely start of upper respiratory virus. take medications as prescribed. Return to the ER or your medical provider if condition worsens. Please read and understand discharge instructions. Thank you for choosing [facility] for your healthcare needs today. Please realize this is an emergency room and that we are providing you with a medical screening exam and this may not be complete and all inclusive of all the testing and or work up that you may need to determine your ailment or severity of your illness. It is very important that you follow up as instructed or that you return to the Emergency Department should you have concerns or if your condition changes or worsens in any way. Coding Level of Care Code ED Alligator Hunter for Tomas Austin Exam Comprehensive
[2022-04-06 12:58] LABS: SARS Covid-2 Antigen negative (Negative)
== END 2022-04-06 13:47 | disposition home or self-care (01) ==
PROVIDERS: Emergency Provider Physician Assistant; PCP Nurse Practitioner Family
DX: B34.9 Viral infection, unspecified (principal); S91.311A Laceration without foreign body, right foot, initial encounter; F84.0 Autistic disorder; X58.XXXA Exposure to other specified factors, initial encounter
CPT/HCPCS: 73630; 87426; 99283

== ENCOUNTER 2022-04-10 21:27 | Emergency (ER) | payer MEDICAID, SELFPAY ==
[2022-04-10 21:31] VITALS: BP 102/73; PULSE 90; RESP 17; TEMP 36.9; O2SAT 100
--- NOTE | 2022-04-10 22:56 | ED_ITS ---
HPI - Wound/Laceration General: Chief Complaint: Wound/Laceration Stated Complaint: right foot injury / infections Time Seen by Provider: 04/10/22 22:56 History of Present Illness: 22-year-old female comes in today for complaints of increased redness and swelling to the right foot. Patient had cut her foot on a rock on and was started on Keflex post removal block. Patient's had increasing redness and swelling to the foot. Patient has had no fever. Patient appears nontoxic. Patient does have a history of eczema, autism, and recurrent ear infections. Review of Systems Resp: Denies: dyspnea Skin/Breast: Reports: erythema PFSH ED PFSH: Medical History Autism Surgical History Hx of eye surgery Social History Smoking and tobacco status: never smoked Second hand smoke exposure: No Smoking risk assessment/counseling performed?: No Alcohol intake: never Desire information about alcohol rehabilitation?: No Counseling given: No Desire information about substance/drug rehabilitation?: No Counseling given: No Adopted: No Caregiver/support person: Yes Lives independently: Yes Household members: family Housing: House Marital status: Single service: No Physical Exam Const: COMMON NORMALS: alert HENMT: COMMON NORMALS: normocephalic HEAD & SCALP: normocephalic Neck/C-Spine: COMMON NORMALS: full ROM Resp: COMMON NORMALS: normal respiratory effort and clear to auscultation bilaterally AUSCULTATION: clear to auscultation bilaterally Cardio: COMMON NORMALS: regular rate and regular rhythm RATE: regular rate RHYTHM: regular rhythm GI: COMMON NORMALS: Soft to palpation PALPATION: Yes Soft to palpation Extremity: RIGHT LOWER EXTREMITY: Yes foot & digits (Erythema and swelling to the dorsal foot, open wound to the mid sole) Right foot and digits: Yes inspection, Yes palpation and Yes ROM Neuro: SENSORIUM/ORIENTATION: Yes alert Skin: COMMON NORMALS: turgor normal GENERAL SKIN EXAM: turgor normal Procedures Foreign Body Removal Site: foot Description of foreign body: other (Glass) Sedation/Analgesia: none Technique: removal with forceps Confirmed by:: radiograph Complications: none Neurovascular: normal distal pulse and normal capillary fill Course Vital Signs: Vital signs: Vital Signs Temperature 98.5 F 04/10/22 21:31 Pulse Rate 90 04/10/22 21:31 Respiratory Rate 17 04/10/22 21:31 Blood Pressure 102/73 04/10/22 21:31 Pulse Oximetry 100 04/10/22 21:31 Oxygen Delivery Me thod 04/10/22 21:31 MDM - Wound/Laceration Medical Decision Making 22-year-old autistic patient was brought in by caregiver for concerns of increased redness and swelling to the right foot. On exam patient has a open wound to the ball of the midfoot. Patient has erythema and swelling to the dorsum of the foot. There is some erythema to the calf of the same leg. Patient also has flexural dry patchy skin. No significant swelling is noted to the left foot. Differential diagnosis includes cellulitis, wound infection, eczema. X-ray noted a foreign body in the foot. Wound was irrigated thoroughly with saline and then a piece of glass was removed with forceps. Patient tolerated well. Repeat x-ray confirmed removal of foreign body. No signs of severe illness is noted. Patient will be switched from cephalexin to clindamycin 450 mg 4 times a day for the next 7 days. Also added to the regimen is mupirocin ointment to apply twice a day to the open wound. Reviewed exam with caregiver recommendations for treatment and follow-up. Patient's ears were also looked at notes some otitis externa in both ears. Patient does have chronic recurrent otitis externa. Patient was placed on some Ciprodex eardrops and recommended follow-up with ENT. Lab Data Radiology Impressions Foot X-Ray 04/10/22 23:58 IMPRESSION: Previously seen foreign body in the region of the 3rd and 4th digits is no longer visualized. Discharge Plan Discharge Patient Disposition: Home Clinical Impression: Eczema Qualifiers: Eczema type: flexural Qualified Code(s): L20.82 - Flexural eczema Foreign body in foot, right, infected Qualifiers: Encounter type: subsequent encounter Qualified Code(s): S90.851D - Superficial foreign body, right foot, subsequent encounter Otitis externa Qualifiers: Otitis externa type: unspecified type Chronicity: chronic Laterality: bilateral Qualified Code(s): H60.63 - Unspecified chronic otitis externa, bilateral Condition: Stable Prescriptions: New clindamycin HCl 150 mg capsule 450 mg PO Q8H 7 Days Qty: 63 0RF mupirocin 2 % ointment 1 applic topical BID Qty: 22 0RF No Action risperidone 1 mg/mL solution 1 mg PO BID Rx Instructions: Take 1.75 Ml by mouth in the morning and 2.25 Ml in the evening. levetiracetam 100 mg/mL solution 500 mg PO BID Rx Instructions: Take 5 ML by mouth twice daily [id number] 3.5-10,000-1 mg/mL-unit/mL-% drops,suspension 4 drp otic (ear) TID Qty: 10 2RF Debrox 6.5 % drops 5 drp otic (ear) DAILY 4 Days Qty: 15 0RF triamcinolone acetonide 0.1 % cream 1 applic topical BID Qty: 30 0RF Rx Instructions: large area arms and face cephalexin 500 mg capsule 500 mg PO Q6H 7 Days Qty: 28 0RF Discharge Orders: Discharge ED (Routine); Ordered 04/11/22 Ordered By: Missael Hodge Referrals: Archana Wolfe FNP-C [Primary Care Provider] - Discharge Diet: Usual diet Patient Instructions: Wound Infection (ED) Activity Restrictions/Additional Instructions: Follow-up with primary care in 1 to 2 days for recheck. Return to ER for worsening symptoms such as fever greater than 100.4, increasing pain and discomfort., Or new concerns. Coding Level of Care Code ED Irrigation Tax Assessor Collector for Tomas Fwd Exam Comprehensive
--- NOTE | 2022-04-10 23:06 | XRR_ITS ---
PROCEDURE INFORMATION: Exam: XR Right Foot Exam date and time: 04/10/2022 11:15 PM Age: 22 years old Clinical indication: Swelling, leg or foot; Additional info: R/O foreign body TECHNIQUE: Imaging protocol: Radiologic exam of the Right foot. Views: 3 or more views. COMPARISON: CR XR foot RT min 3V* [id number] 04/06/2022 12:16 PM FINDINGS: Bones/joints: Normal. Soft tissues: Soft tissue swelling of the forefoot. Radiodense foreign body measuring 3 to 4 mm again seen in the soft tissues overlying the midportion of the 3rd proximal phalanx on the AP view which appears in the region of the 4th proximal phalanx distal aspect on the oblique view suggesting it is located in an area of soft tissue swelling overlying the dorsum of the forefoot. XR/XR foot RT min 3V* [id number] IMPRESSION: Radiodense foreign body measuring 3 to 4 mm again seen in the soft tissues overlying the midportion of the 3rd proximal phalanx on the AP view which appears in the region of the 4th proximal phalanx distal aspect on the oblique view suggesting it is located in an area of soft tissue swelling overlying the dorsum of the forefoot.
--- NOTE | 2022-04-10 23:58 | XRR_ITS ---
PROCEDURE INFORMATION: Exam: XR Right Foot Exam date and time: 04/11/2022 12:06 AM Age: 22 years old Clinical indication: Swelling, leg or foot; Additional info: Post foreign body removal TECHNIQUE: Imaging protocol: Radiologic exam of the Right foot. Views: 3 or more views. COMPARISON: CR (LOW EXM, ) 04/10/2022 11:15 PM FINDINGS: Bones/joints: Normal. Soft tissues: Soft tissue swelling over the forefoot. XR/XR foot RT min 3V* [id number] IMPRESSION: Previously seen foreign body in the region of the 3rd and 4th digits is no longer visualized.
[2022-04-11] MEDS: clindamycin 150 mg Capsule 450 MG PO (00:05)
[2022-04-11] MEDS: mupirocin oint 22 gm 1 APPLIC TOPICAL (00:05)
[2022-04-11] MEDS: ciprofloxacin-dexameth Otic Susp 7.5 mL Btl 4 DROP EAR-BOTH (00:31)
== END 2022-04-11 00:39 | disposition home or self-care (01) ==
PROVIDERS: Emergency Provider Nurse Practitioner Family; PCP Nurse Practitioner Family
DX: S90.851A Superficial foreign body, right foot, initial encounter (principal); L20.82 Flexural eczema; H60.63 Unspecified chronic otitis externa, bilateral; F84.0 Autistic disorder; X58.XXXA Exposure to other specified factors, initial encounter
CPT/HCPCS: 73630; 99283

== ENCOUNTER 2022-05-02 06:28 | Emergency (ER) | payer MEDICAID, SELFPAY ==
[2022-05-02] VITALS (7 sets, daily range): BP systolic 86–105; BP diastolic 47–67; PULSE 70–91; RESP 16; O2SAT 96–100; BMI 20.3
--- NOTE | 2022-05-02 06:46 | ED_ITS ---
HPI - Seizure General: Chief Complaint: Seizure Stated Complaint: SEIZURES Time Seen by Provider: 05/02/22 06:35 Source: patient History of Present Illness: HPI Narrative: 22-year-old female with a history of autism. She is usually nonverbal but able to ambulate. She also has conductive hearing loss. This morning her mother was giving her a bath and noted she had several seizures. She has a known history of seizures that she is on Keppra. They gave her a dose after one of her seizures this morning by mouth. She is brought in by EMS EMS reported a episode of right gaze deviation with a verbal clicking sound while in route. He had another episode that was very brief shortly after arrival here by the time I went back to the room it had ceased and she was reacting to noxious stimuli from her mother already. She did not recently miss any doses run out or have any change in her medication level. complaint: seizure Onset (ago): hour(s) Witnessed: Yes - by Bystander Trauma: No Seizure History: Yes Place: Home Possible Precipitating Event: none Associated symptoms: Reports chills and fever(s); Deny cough, anorexia, rash, short of breath or weakness Treatments prior to arrival: none Review of Systems General: Reports: ROS unobtainable due to mental status (Some review of systems per mother) Const: Reports: fever(s) and chills GI: Denies: vomiting or diarrhea : Denies: dysuria or urinary frequency Skin/Breast: Denies: rash or pruritus PFSH ED PFSH: Medical History Autism Surgical History Hx of eye surgery Social History Smoking and tobacco status: never smoked Second hand smoke exposure: No Smoking risk assessment/counseling performed?: No Alcohol intake: never Desire information about alcohol rehabilitation?: No Counseling given: No Desire information about substance/drug rehabilitation?: No Counseling given: No Adopted: No Caregiver/support person: Yes Lives independently: Yes Household members: family Housing: House Marital status: Single service: No Physical Exam Const: GENERAL APPEARANCE: cooperative and comfortable HENMT: COMMON NORMALS: normocephalic and atraumatic HEAD & SCALP: normocephalic and atraumatic Eye: COMMON NORMALS: Equal, round and reactive pupils present, EOMs intact bilaterally, conjunctivae normal and no scleral icterus CONJUNCTIVA: Yes conjunctivae normal PUPIL: Yes Equal, round and reactive pupils present Neck/C-Spine: COMMON NORMALS: full ROM, no lymphadenopathy and supple Lymph: LYMPHATIC: no lymphadenopathy noted and no lymphedema noted Resp: COMMON NORMALS: normal respiratory effort, No retractions, No use of accessory muscles and clear to auscultation bilaterally AUSCULTATION: clear to auscultation bilaterally Cardio: COMMON NORMALS: regular rate, regular rhythm and No murmurs present (Cardio) RATE: regular rate RHYTHM: regular rhythm GI: COMMON NORMALS: Soft to palpation and No hepatosplenomegaly present AUSCULTATION: Yes normoactive bowel sounds PALPATION: Yes Soft to palpation, No Tenderness to palpation present (GI), No Guarding due to palpation present (GI) and Yes No hepatosplenomegaly present Extremity: COMMON NORMALS: normal to inspection, capillary refill normal, no clubbing, cyanosis or edema, no calf tenderness and no pedal edema Skin: COMMON NORMALS: no rashes or lesions noted GENERAL SKIN EXAM: no rashes or lesions noted Course Vital Signs: Vital signs: Vital Signs Pulse Rate 86 05/02/22 08:35 Respiratory Rate 16 05/02/22 06:34 Blood Pressure 86/51 05/02/22 08:35 Pulse Oximetry 100 05/02/22 08:35 Oxygen Delivery Me thod 05/02/22 08:35 MDM - Seizure MDM Narrative Medical decision making narrative: Labs reviewed. Patient on lower dose of Keppra she is given an extra IV dose Keppra levels also drawn. That is pending. We will increase her Keppra to 750 twice a day she had 1 episode after arrival here no further episodes discharged home encouraged to follow-up with her neurologist for further medication adjustments. If she has recurrent episode return to the emergency room. Medical Records Attestation: I reviewed the patient's medical records. Lab Data Attestation: I reviewed the patient's lab results. 05/02/22 06:35 05/02/22 06:35 Labs: Laboratory Results WBC 9.5 10^3/uL (4.0-10.0) 05/02/22 06:35 RBC 4.18 10^6/uL (4.1-5.3) 05/02/22 06:35 Hgb 12.3 g/dL (11.5-15.3) 05/02/22 06:35 Hct 37.6 % (37.0-47.0) 05/02/22 06:35 MCV 90.0 fl (81-99) 05/02/22 06:35 MCH 29.4 pg (28.0-34.0) 05/02/22 06:35 MCHC 32.7 g/dL (30.0-36.0) 05/02/22 06:35 RDW 13.8 % (12.1-15.1) 05/02/22 06:35 Plt Count 222 10^3/cmm (130-400) 05/02/22 06:35 MPV 10.9 fL (7.4-10.4) H 05/02/22 06:35 Neut % (Auto) 74.7 % 05/02/22 06:35 Lymph % (Auto) 16.1 % 05/02/22 06:35 [place] % (Auto) 8.4 % 05/02/22 06:35 Eos % (Auto) 0.1 % 05/02/22 06:35 Baso % (Auto) 0.4 % 05/02/22 06:35 Neut # (Auto) 7.07 10^3/uL (1.8-7.7) 05/02/22 06:35 Lymph # (Auto) 1.5 10^3/uL (0.8-4.8) 05/02/22 06:35 [place] # (Auto) 0.8 10^3/uL (0.2-0.9) 05/02/22 06:35 Eos # (Auto) 0.0 10^3/uL (0.0-0.8) 05/02/22 06:35 Baso # (Auto) 0.0 10^3/uL (0.0-0.1) 05/02/22 06:35 Nucleated RBC % (auto) 0 % 05/02/22 06:35 Nucleated RBCs # 0.0 /100WBC 05/02/22 06:35 Sodium 134 mmol/L (136-145) L 05/02/22 06:35 Potassium 4.4 mmol/L (3.5-5.1) 05/02/22 06:35 Chloride 101 mmol/L (98-107) 05/02/22 06:35 Carbon Dioxide 26 mmol/L (22-29) 05/02/22 06:35 Anion Gap 11.4 (5-19) 05/02/22 06:35 BUN 6 mg/dL (6-20) 05/02/22 06:35 Creatinine 0.5 mg/dL (0.5-0.9) 05/02/22 06:35 GFR Calculation 152.9 mL/min (90-130) H 05/02/22 06:35 Glucose 92 mg/dL (65-115) 05/02/22 06:35 Calculated Osmolality 275 mOsm/kg (285-295) L 05/02/22 06:35 Calcium 9.2 mg/dL (8.5-10.5) 05/02/22 06:35 Magnesium 2.1 mg/dL (1.7-2.3) 05/02/22 06:35 Creatine Kinase 108 U/L (26-192) 05/02/22 06:35 Urine Color Yellow (Yellow) 05/02/22 08:15 Urine Appearance Clear (CLEAR) 05/02/22 08:15 Urine pH 8 (5-7) H 05/02/22 08:15 Ur Specific [place] 1.015 (1.005-1.030) 05/02/22 08:15 Urine Protein Neg (Negative) 05/02/22 08:15 Urine Glucose (UA) Norm (Normal) 05/02/22 08:15 Urine Ketones 2+ (Negative) H 05/02/22 08:15 Urine Blood Neg (Negative) 05/02/22 08:15 Urine Nitrate Negative (Negative) 05/02/22 08:15 Urine Bilirubin Neg (Negative) 05/02/22 08:15 Urine Urobilinogen Norm mg/dL (Negative) 05/02/22 08:15 Ur Leukocyte Esterase Negative (Negative) 05/02/22 08:15 Discharge Plan Discharge Patient Disposition: Home Clinical Impression: Focal seizure, Autism Condition: Stable Prescriptions: Changed levetiracetam 100 mg/mL solution 750 mg PO BID Qty: 473 0RF Rx Instructions: Take 5 ML by mouth twice daily No Action risperidone 1 mg/mL solution 1 mg PO BID Rx Instructions: Take 1.75 Ml by mouth in the morning and 2.25 Ml in the evening. [id number]-TG 3.5-10,000-1 mg/mL-unit/mL-% drops,suspension 4 drp otic (ear) TID Qty: 10 2RF triamcinolone acetonide 0.1 % cream 1 applic topical BID Qty: 30 11RF Rx Instructions: large area arms and face Debrox 6.5 % drops 5 drp otic (ear) DAILY 4 Days Qty: 15 0RF mupirocin 2 % ointment 1 applic topical BID Qty: 22 0RF Discharge Orders: Discharge ED (Routine); Ordered 05/02/22 Ordered By: Jaziel Fleming Referrals: Archana Wolfe FNP-C [Primary Care Provider] - Discharge Diet: Usual diet Discharge Activity: Increase activity as tolerated Patient Instructions: Opioid Safety, Pain Management Activity Restrictions/Additional Instructions: You were seen today for seizures. You are given a IV dose of your antiseizure medication Keppra. Recommend that you increase your seizure medication to 750 mg twice daily. Recommend you contact your neurologist as soon as you are able and advise him of the seizures today and the medication change. Further adjustments at the discretion of the the neurologist. Return if you have further problems. Coding Level of Care Code ED Tube Station Attendant for Tomas Fwdivina Exam Comprehensive
[2022-05-02 06:56] LABS: Basophils % 0.4 %; Eosinophils % 0.1 %; Hematocrit 37.6 % (37.0-47.0); Hemoglobin 12.3 g/dL (11.5-15.3); Lymphocytes # 1.5 10^3/uL (0.8-4.8); Lymphocytes % 16.1 %; Mean Corpuscular HGB Conc 32.7 g/dL (30.0-36.0); Mean Corpuscular Hemoglobin 29.4 pg (28.0-34.0); Mean Platelet Volume 10.9 fL (7.4-10.4); Monocytes # 0.8 10^3/uL (0.2-0.9); Monocytes % 8.4 %; Neutrophils # 7.07 10^3/uL (1.8-7.7); Neutrophils % 74.7 %; Nucleated Red Blood Cells % 0 %; Platelet Count 222 10^3/cmm (130-400); Red Blood Count 4.18 10^6/uL (4.1-5.3); Red Cell Distribution Width 13.8 % (12.1-15.1); White Blood Count 9.5 10^3/uL (4.0-10.0)
[2022-05-02 07:09] LABS: Anion Gap 11.4 (5-19); Blood Urea Nitrogen 6 mg/dL (6-20); Calcium 9.2 mg/dL (8.5-10.5); Carbon Dioxide 26 mmol/L (22-29); Chloride 101 mmol/L (98-107); Creatine Phosphokinase 108 U/L (26-192); Glomerular Filtration Rate 152.9 mL/min (90-130); Glucose 92 mg/dL (65-115); Magnesium 2.1 mg/dL (1.7-2.3); Osmolality Calculated 275 mOsm/kg (285-295); Potassium 4.4 mmol/L (3.5-5.1); Sodium 134 mmol/L (136-145)
[2022-05-02] MEDS: sodium chloride 0.9% 500 ML 999 ML IV (07:34)
[2022-05-02 08:26] LABS: Add Urine Microscopic? NO
[2022-05-02 08:27] LABS: Bilirubin Urine Neg (Negative); Blood Urine Neg (Negative); Glucose Urine UA Norm (Normal); Ketones Urine 2+ (Negative); Leukocyte Esterase Urine Negative (Negative); Nitrate Urine Negative (Negative); Protein Urine Neg (Negative); Specific Gravity, Urine 1.015 (1.005-1.030); Urine Appearance Clear (CLEAR); Urine Color Yellow (Yellow); Urobilinogen Urine Norm (Negative); pH Urine 8 (5-7)
[2022-05-02 08:29] LABS: Charge for UA Resulting for Rev
[2022-05-02] MEDS: sodium chloride 0.9% 1,000 ML 999 ML IV (08:32)
[2022-05-04 07:58] LABS: Levetiracetam Immunoassy 18.8 mcg/mL (6.0-46.0)
== END 2022-05-02 08:40 | disposition home or self-care (01) ==
PROVIDERS: Emergency Provider Family Medicine; PCP Nurse Practitioner Family
DX: G40.89 Other seizures (principal); F84.0 Autistic disorder
CPT/HCPCS: 80048; 80177; 81003; 82550; 83735; 85025; 96374; 99284; J1953; J7030; J7040

== ENCOUNTER 2022-05-02 10:21 | Emergency (ER) | payer MEDICAID, SELFPAY ==
[2022-05-02] VITALS (9 sets, daily range): PULSE 74–97; RESP 14–16; TEMP 37.2; O2SAT 90–99
--- NOTE | 2022-05-02 13:11 | ED_ITS ---
HPI - Seizure General: Chief Complaint: Seizure Stated Complaint: seizure Time Seen by Provider: 05/02/22 13:08 Source: patient History of Present Illness: HPI Narrative: 22-year-old female patient seen earlier today with seizures we increased her Keppra. Mother returns stating she is continuing to have seizures. I came in the room she is is having a seizure she has forced gaze deviation to the right as well as a facial pulling to the right side. Mother stating she has had 13 separate seizures now. She has a known history of seizure disorder and is seen by neurology in [place]. complaint: seizure Onset (ago): hour(s) Witnessed: Yes - by Bystander Seizure History: Yes Review of Systems General: Reports: ROS unobtainable due to mental status PFSH ED PFSH: Medical History Autism Surgical History Hx of eye surgery Social History Smoking and tobacco status: never smoked Second hand smoke exposure: No Smoking risk assessment/counseling performed?: No Alcohol intake: never Desire information about alcohol rehabilitation?: No Counseling given: No Desire information about substance/drug rehabilitation?: No Counseling given: No Adopted: No Caregiver/support person: Yes Lives independently: Yes Household members: family Housing: House Marital status: Single service: No Physical Exam HENMT: COMMON NORMALS: normocephalic and atraumatic HEAD & SCALP: normocephalic and atraumatic Resp: COMMON NORMALS: normal respiratory effort, No retractions, No use of accessory muscles and clear to auscultation bilaterally AUSCULTATION: clear to auscultation bilaterally Cardio: COMMON NORMALS: regular rate, regular rhythm and No murmurs present (Cardio) RATE: regular rate RHYTHM: regular rhythm GI: COMMON NORMALS: Soft to palpation and No hepatosplenomegaly present AUSCULTATION: Yes normoactive bowel sounds PALPATION: Yes Soft to palpation, No Tenderness to palpation present (GI), No Guarding due to palpation present (GI) and Yes No hepatosplenomegaly present Extremity: COMMON NORMALS: normal to inspection, capillary refill normal, no clubbing, cyanosis or edema, no calf tenderness and no pedal edema Skin: COMMON NORMALS: no rashes or lesions noted GENERAL SKIN EXAM: no rashes or lesions noted Course Vital Signs: Vital signs: Vital Signs Temperature 98.9 F 05/02/22 12:16 Pulse Rate 97 05/02/22 13:36 Respiratory Rate 16 05/02/22 13:36 Pulse Oximetry 96 05/02/22 14:20 Oxygen Delivery Me thod 05/02/22 13:36 Oxygen Flow Rate 1 05/02/22 13:36 MDM - Seizure MDM Narrative Medical decision making narrative: Persistent seizures continuing to recur prior patient given Ativan and loaded with fosphenytoin on. We do not have neurology available we will have to transfer. I am trying to make contact with her primary neurologist Was able to talk to patient's control and recovery special tactics neurology for the group that she usually sees. He was familiar with the patient dates he usually has them in clusters and they do not regularly change her medications evidently. They would like us to treat her through her ER to ER to [place]. Dr. Sargent in the emergency room at [facility] agrees to accept her on transfer. Patient had no further seizures while in the emergency room. Discharge Plan Discharge Patient Disposition: Xfer Short-Term Hosp Clinical Impression: Focal seizure Condition: Stable Referrals: Archana Wolfe FNP-C [Primary Care Provider] - Coding Level of Care Code ED Ordinary Seaman for Tomas Fwdivina Exam Detailed
[2022-05-02] MEDS: LORazepam 2 mg/mL INJ 1 mL IVP (13:20)
[2022-05-02] MEDS: fosphenytoin 1,000 MG in sodium chloride 0.9% (100 ml) 100 ML 240 MG IV (14:02)
== END 2022-05-02 17:29 | disposition short-term general hospital (02) ==
PROVIDERS: Emergency Provider Family Medicine; PCP Nurse Practitioner Family
DX: G40.109 Localization-related (focal) (partial) symptomatic epilepsy and epileptic syndromes with simple partial seizures, not intractable, without status epilepticus (principal); F84.0 Autistic disorder
CPT/HCPCS: 96365; 96366; 96375; 99284; J2060; Q2009

== ENCOUNTER → 2024-11-19 08:39 | Outpatient (BNVA) | payer MEDICAID, SELFPAY | PROVIDERS: PCP Clinical Nurse Specialist Adult Health; Visit Provider Clinical Nurse Specialist Adult Health | DX: F84.0 Autistic disorder (principal); R56.9 Unspecified convulsions | CPT/HCPCS: 80053; 82306; 82607; 85025 ==

== ENCOUNTER → 2025-01-30 12:04 | Outpatient (BNVA) | payer MEDICAID, SELFPAY | PROVIDERS: PCP Clinical Nurse Specialist Adult Health; Visit Provider Clinical Nurse Specialist Adult Health | DX: R79.89 Other specified abnormal findings of blood chemistry (principal) | CPT/HCPCS: 80076 ==

== ENCOUNTER → 2025-03-03 10:09 | Outpatient (BNVA) | payer MEDICAID, SELFPAY | PROVIDERS: PCP Clinical Nurse Specialist Adult Health; Visit Provider Clinical Nurse Specialist Adult Health | DX: R56.9 Unspecified convulsions (principal) | CPT/HCPCS: 80053; 82306; 85025 ==